=== PATIENT | female | born 1985 | race Caucasian/White ===

== ENCOUNTER 2024-10-18 17:27 | Inpatient (IN) | payer OTHER ==
[~2024-10-18] VITALS: Ht 162.6 cm; Wt 68.0 kg
--- NOTE | 2024-10-18 17:34 | NUR ---
SE RECIBE PTE ALERTA Y ORIENTADA X3. REFIERE SANGRADO VAGINAL EN EL [place] DE [place]. EMBARAZADA DE [address] DE [address] VELVET MCCOY
--- NOTE | 2024-10-18 18:20 | NUR ---
SE EJECUTAN ORDENES MEDICAS EN THACKER TOTALIDAD.
[2024-10-18 18:23] LABS: HEMOGLOBIN 13.4 g/dL (12.0-15.00); MEAN CELL VOLUME 88.1 fL (80.00-100.00); MEAN CORPUSCULAR HEMOGLOBIN 30.3 pg (27.00-32.0); MEAN CORPUSCULAR HGB CONC 34.4 g/dl (32.0-36.0); PLATELET COUNT 208 K/uL (150-450); RED BLOOD COUNT 4.42 M/uL (4.00-6.00); RED CELL DISTRIBUTION WIDTH 13.9 % (11.5-14.5)
[2024-10-18 19:00] LABS: URINE APPEARANCE Clear; URINE BILIRRUBIN Negative (NEGATIVE); URINE BLOOD Trace; URINE COLOR Yellow; URINE GLUCOSE Negative (NEGATIVE); URINE KETONE Negative (NEGATIVE); URINE LEUKOCYTE Negative; URINE NITRATE Negative; URINE PROTEIN Negative (NEGATIVE)
[2024-10-18 19:03] LABS: URINE BACTERIA 39.1 uL (0.0-1933); URINE RBC 2.7 uL (0.0-20.8); URINE WBC 2.3 uL (0.0-23.2)
[2024-10-18 19:09] LABS: CALCIUM 9.3 mg/dL (8.5-10.1); CREATININE SERUM 0.58 mg/dL (0.55-1.02); GFR 115.73; POTASSIUM 3.65 mEq/L (3.5-5.1)
[2024-10-18 19:51] LABS: URINE EPITHELIAL CELLS 0.6 uL (0.0-38.8)
[2024-10-19] MEDS ORDERED: RINGERS SOLUTION,LACTATED 1,000 ML IV ONE (07:00)
--- NOTE | 2024-10-19 08:13 | NUR ---
SE RECIBE PTE ALERTA Y ORIENTADA X3 EN CAROLINE CON BARANDAS ELEVADAS POR THACKER SEGURIDAD Y BOBO DE ID. PTE PENDIENTE A CONSULTA CON /.
[2024-10-19 11:49] LABS: INR 1.1; PARTIAL THROMBOPLASTIN TIME 35.8 SECONDS (22.0-34.0); PROTHROMBIN TIME 11.9 SECONDS (9.0-11.5)
[2024-10-19] MEDS ORDERED: PLAQUENIL PO (11:53)
[2024-10-19] MEDS ORDERED: CEFAZOLIN SODIUM 1,000 MG VIAL IV SCH (14:00)
[2024-10-19 14:45] VITALS: BP 112/79
[2024-10-19 16:00] VITALS: BP 118/81
[2024-10-20 00:59] VITALS: BP 117/82
[2024-10-20] MEDS ORDERED: ACETAMINOPHEN 500 MG GEL..CAP PO STA (07:02)
[2024-10-20 08:00] VITALS: BP 117/81
[2024-10-20] MEDS ORDERED: POVIDONE-IODINE 118 ML BOTT TOP ONE (17:14)
[2024-10-20] MEDS ORDERED: OXYTOCIN 1,000 ML IV SCH (17:45)
[2024-10-20] MEDS ORDERED: OXYTOCIN 10 UNITS/ML VIAL ONE (18:55)
[2024-10-20] MEDS ORDERED: IBUprofen 800 MG TABLET PO PRN (19:15)
[2024-10-20] MEDS ORDERED: PROMETHAZINE HCL 25 MG/ML AMPUL IM ONE (19:15)
[2024-10-20] MEDS ORDERED: MORPHINE SULFATE 4 MG/ML CARTRIDGE IV ONE (19:15)
[2024-10-20] MEDS ORDERED: PROMETHAZINE HCL 25 MG/ML AMPUL ONE (19:28)
[2024-10-20 19:29] VITALS: BP 110/70
[2024-10-21 00:42] VITALS: BP 123/76
[2024-10-21 02:32] VITALS: O2SAT 100
[2024-10-21 04:15] LABS: HEMATOCRIT 36.6 % (36.0-45.00); HEMOGLOBIN 12.6 g/dL (12.0-15.00); MEAN CELL VOLUME 87.9 fL (80.00-100.00); MEAN CORPUSCULAR HEMOGLOBIN 30.4 pg (27.00-32.0); MEAN CORPUSCULAR HGB CONC 34.6 g/dl (32.0-36.0); PLATELET COUNT 173 K/uL (150-450); RED BLOOD COUNT 4.17 M/uL (4.00-6.00); RED CELL DISTRIBUTION WIDTH 13.9 % (11.5-14.5)
[2024-10-21 08:00] VITALS: BP 105/71
[2024-10-21] MEDS ORDERED: IBUPROFEN800 MG PO (08:06)
== END 2024-10-21 10:29 | disposition home or self-care (01) | DRG 779 ==
LOC: ER 17:30 → SEC-K 10-19 11:18 → OB/GYN 10-19 11:18
PROVIDERS: Emergency Medicine; ADMIT Specialist; ATTEND Specialist
PROC: BU4CZZZ Ultrasonography of Uterus and Ovaries (ICD-10-PCS; 2024-10-19)
PROC: 3E033VJ Introduction of Other Hormone into Peripheral Vein, Percutaneous Approach (ICD-10-PCS; 2024-10-20)
PROC: 10D17Z9 Manual Extraction of Products of Conception, Retained, Via Natural or Artificial Opening (ICD-10-PCS; principal; 2024-10-20 17:30)
DX: O02.1 Missed abortion (principal); Z3A.09 9 weeks gestation of pregnancy; M32.9 Systemic lupus erythematosus, unspecified; M06.9 Rheumatoid arthritis, unspecified; N93.9 Abnormal uterine and vaginal bleeding, unspecified